=== PATIENT | male | born 1955 | race Caucasian/White ===

== ENCOUNTER → 2020-08-23 | Outpatient (CLI) | payer MEDICARE, OTHER ==
[~2020-08-23] MED LIST: OMNICEF 300 MG300 MG PO; TESSALON PERLE100 MG PO
[2020-08-23 13:28] LABS: HEMOGLOBIN 14.9 gm/dl (14.0-17.5); RED BLOOD COUNT 4.6 M/UL (4.20-5.50)
[2020-08-23 13:52] LABS: BUN/CREATININE RATIO 22 (0-10)
[2020-08-29 14:10] LABS: AMPHETAMINES, URINE Negative ng/mL (Cutoff=1000); BARBITURATE Negative ng/mL (Cutoff=200); BENZODIAZEPINES Negative ng/mL (Cutoff=200); CANNABINOIDS Negative ng/mL (Cutoff=20); COCAINE (METABOLITE) Negative ng/mL (Cutoff=300); CODEINE Negative (Cutoff=300); CREATININE 140.9 mg/dL (20.0-300.0); HYDROCODONE Positive (.); HYDROCODONE CONFIRM 639 ng/mL (Cutoff=300); HYDROMORPHONE Positive (.); HYDROMORPHONE CONFIRM 355 ng/mL (Cutoff=300); MEPERIDINE Negative ng/mL (Cutoff=200); METHADONE Negative ng/mL (Cutoff=300); MORPHINE Negative (Cutoff=300); OPIATES Positive ng/mL (Cutoff=300); OPIATES See Final Results ng/mL (Cutoff=300); PHENCYCLIDINE Negative ng/mL (Cutoff=25); PROPOXYPHENE Negative ng/mL (Cutoff=300)
== END ==
LOC: LAB 10:51
PROVIDERS: Family Medicine
DX: E78.5 Hyperlipidemia, unspecified (principal); Z79.899 Other long term (current) drug therapy; R51.9 Headache, unspecified; C06.2 Malignant neoplasm of retromolar area
CPT/HCPCS: 36415; 80053; 80061; 80307; 85027

== ENCOUNTER → 2021-02-24 | Outpatient (CLI) | payer MEDICARE, OTHER ==
[2021-02-24 11:11] LABS: HEMOGLOBIN 14.8 gm/dl (14.0-17.5); RED BLOOD COUNT 4.57 M/UL (4.20-5.50); WHITE BLOOD COUNT 4.6 K/UL (4.5-11.0)
[2021-02-24 11:31] LABS: BUN/CREATININE RATIO 27 (0-10)
== END ==
LOC: LAB 09:46
PROVIDERS: Family Medicine
DX: C06.2 Malignant neoplasm of retromolar area (principal); R51.9 Headache, unspecified; B02.29 Other postherpetic nervous system involvement; Z79.899 Other long term (current) drug therapy; E78.5 Hyperlipidemia, unspecified
CPT/HCPCS: 36415; 80053; 80061; 80307; 85027

== ENCOUNTER 2021-06-11 13:44 | Emergency (ER) | payer MEDICARE, OTHER ==
[2021-06-11 14:55] LABS: HEMOGLOBIN 14.5 gm/dl (14.0-17.5); RED BLOOD COUNT 4.44 M/UL (4.20-5.50); WHITE BLOOD COUNT 5.5 K/UL (4.5-11.0)
[2021-06-11 15:15] LABS: BUN/CREATININE RATIO 25 (0-10)
[2021-06-11] MEDS ORDERED: PROAIR DIGIHAL90 MCG INH ×2 (16:47→16:50)
[2021-06-11] MEDS ORDERED: VIBRAMYCIN 100100 MG GT (16:47)
[2021-06-11] MEDS ORDERED: VIBRAMYCIN 100100 MG PEG (16:50)
== END 2021-06-11 16:55 | disposition home or self-care (01) ==
LOC: ER1 13:44
PROVIDERS: Physician Assistant Medical
DX: U07.1 COVID-19 (principal); R05.9 Cough, unspecified; R50.9 Fever, unspecified
CPT/HCPCS: 71045; 80053; 81001; 83690; 85025; 99284; U0002

== ENCOUNTER → 2021-11-15 | Outpatient (CLI) | payer MEDICARE, OTHER ==
[~2021-11-15] MED LIST changes: +PROAIR DIGIHAL90 MCG INH; +VIBRAMYCIN 100100 MG GT; +VIBRAMYCIN 100100 MG PEG
[2021-11-15 11:18] LABS: HEMOGLOBIN 15.1 gm/dl (14.0-17.5); RED BLOOD COUNT 4.6 M/UL (4.20-5.50); WHITE BLOOD COUNT 4.2 K/UL (4.5-11.0)
[2021-11-15 11:40] LABS: BUN/CREATININE RATIO 28 (0-10)
== END ==
LOC: LAB 09:50
PROVIDERS: Family Medicine
DX: Z12.5 Encounter for screening for malignant neoplasm of prostate (principal); R35.1 Nocturia; E78.5 Hyperlipidemia, unspecified
CPT/HCPCS: 36415; 80053; 80061; 83735; 85027; G0103